=== PATIENT | female | born 1970 ===

== ENCOUNTER 2016-12-08 06:40 | Day surgery (SDC) | payer BC ==
[~2016-12-08] VITALS: Ht 160 cm; Wt 54.4 kg
[2016-12-08] VITALS (8 sets, daily range): BP systolic 100–108; BP diastolic 41–61
[~2016-12-08 06:40] MED LIST: MitoMYcin Opth 0.2 mg/ml Syringe RIGHT EYE ONE
[2016-12-08] MEDS ORDERED: Pred Forte 1% Opth Susp 1ml ONE ×2 (06:43→06:51)
[2016-12-08] MEDS ORDERED: Lidocaine 2% 20mg/ml/Epi 0.005mg/ml 20ml vial ONE (06:43)
[2016-12-08] MEDS ORDERED: Maxitrol Opth Oint 3.5gm ONE (06:43)
[2016-12-08] MEDS ORDERED: Tetracaine 0.5% Opth Soln ONE (06:44)
[2016-12-08] MEDS ORDERED: BSS 15ml BTL ONE (06:44)
[2016-12-08] MEDS ORDERED: Povidone-Iodine 5% opth solution ONE (06:44)
[2016-12-08] MEDS ORDERED: Ciprofloxacin Opth Soln ONE (06:51)
[2016-12-08] MEDS ORDERED: Phenylephrine 2.5% Op Soln ONE (06:52)
[2016-12-08] MEDS ORDERED: Akten 3.5% 1ml Btl ONE (06:52)
[2016-12-08] MEDS: Ciprofloxacin Opth Soln RIGHT EYE SCH ×4 (07:08→07:27)
[2016-12-08] MEDS: Akten 3.5% 1ml Btl RIGHT EYE SCH ×4 (07:08→07:27)
[2016-12-08] MEDS: Phenylephrine 2.5% Op Soln RIGHT EYE SCH ×4 (07:09→07:27)
[2016-12-08] MEDS: Pred Forte 1% Opth Susp 1ml RIGHT EYE SCH ×4 (07:09→07:27)
[2016-12-08] MEDS ORDERED: LR 1000ml ONE (07:30)
[2016-12-08] MEDS ORDERED: Midazolam 2mg/2ml Inj ONE (07:30)
[2016-12-08] MEDS ORDERED: NS Irrig 1000ml ONE (07:30)
[2016-12-08] MEDS ORDERED: Alfentanil 2ml Inj ONE (07:30)
[2016-12-08] MEDS ORDERED: Sterile Water Irrig 1000ml IRRIG ONE (07:30)
[2016-12-08] MEDS ORDERED: LR 1000ml 1,000 ML IVLG SCH (07:42)
--- NOTE | 2016-12-08 07:43 | Pre-Procedure Note/Attestation ---
Pre-Procedure Note/Attestation Complete Prior to Procedure Planned Procedure: right Procedure Narrative: Lamellar keratectomy, amniograft, excision of pterygium, right eye. Indications for Procedure Pre-Operative Diagnosis: Pterygium, right eye Attestation I attest that I discussed the nature of the procedure; its benefits; risks and complications; and alternatives (and the risks and benefits of such alternatives ), prior to the procedure, with the patient (or the patient's legal wholesale representative). I attest that, if there was a reasonable possibility of needing a blood transfusion, the patient (or the patient's legal wholesale representative) was given the [facility] standardized written summary, pursuant to the Michael Raritan Blood Safety Act ([place] Health and Safety Code # 1645, as amended). I attest that I re-evaluated the patient just prior to the surgery and that there has been no change in the patient's H&P, except as documented below: PATRICIA VARGHESE December 08, 2016 07:43
[2016-12-08] MEDS ORDERED: fentaNYL 100 mcg/2 mL IV PRN (07:45)
--- NOTE | 2016-12-08 07:46 | Anethesia Preoperative Eval ---
Anesthesia Pre-op PMH/ROS General Date of Evaluation: December 08, 2016 Time of Evaluation: 07:15 Anesthesiologist: Josephine ASA Score: ASA 1 Mallampati Score Class I : Soft palate, uvula, fauces, pillars visible Class II: Soft palate, uvula, fauces visible Class III: Soft palate, base of uvula visible Class IV: Only hard plate visible Mallampati Classification: Class II Surgeon: Whitney Diagnosis: Pterygium right eye Surgical Procedure: Excision of pterygium Allergies: Coded Allergies: HOMATROPINE (Verified Allergy, Unknown, 12/05/16) HYDROCODONE (Verified Allergy, Unknown, 12/05/16) Medications: see eMAR Past Medical History Cardiovascular: Denies: CAD, HTN, [place], arrhythmia, other, valve dz Pulmonary: Denies: COPD, ARNALDO, asthma, other Gastrointestinal/Genitourinary: Denies: CRI, ESRD, GERD, other Neurologic/Psychiatric: Denies: CVA, TIA, dementia, depression/anxiety, other Endocrine: Denies: DM, hypothyroidism, other, steroids HEENT: Denies: VIEJAS (L), VIEJAS (R), cataract (L), cataract (R), glaucoma, other Hematology/Immune: Denies: DVT, anemia, bleeding disorder, other Musculoskeletal/Integumentary: Denies: DDD, DJD, OA, RA, edema, other PMH Narrative: Denies PSxH Narrative: AP, T&A Anesthesia Pre-op Phys. Exam Physician Exam Last Vital Signs Date Time Temp Pulse Resp B/P Pulse Ox O2 Delivery O2 Flow Rate FiO2 12/08/16 07:24 98.2 67 20 104/58 98 Room Air Constitutional: NAD Neurologic: CN 2-12 intact Cardiovascular: RRR, no M/R/G Respiratory: CTA Gastrointestinal: S/NT/ND Airway Exam Mallampati Score: Class II MO: full ROM: full Teeth: intact Anesthesia Pre-op A/P Labs WNL Urine Test Test 12/08/16 06:50 Urine HCG, Qualitative Negative Risk Assessment & Plan Assessment: Healthy female for excision of pterygium Plan: MAC Status Change Before Surgery: No Pre-Antibiotics Drug: None SHANTHI AVILA M.D. December 08, 2016 07:46
--- NOTE | 2016-12-08 07:47 | Immediate Post-Op Evaluation ---
Immediate Post-Op Evalulation Immediate Post-Op Evalulation Procedure: Excision of pterygium right eye Date of Evaluation: December 08, 2016 Time of Evaluation: 08:30 IV Fluids: 350 Blood Pressure Systolic: 117 Blood Pressure Diastolic: 52 Pulse Rate: 70 Respiratory Rate: 16 O2 Sat by Pulse Oximetry: 98 Temperature (Fahrenheit): 97.2 Pain Score (1-10): 0 Nausea: No Vomiting: No Complications No complication Patient Status: awake, patent, none Hydration Status: adequate Drug: None SHANTHI AVILA M.D. December 08, 2016 07:47
--- NOTE | 2016-12-08 08:43 | Operative Note - PDOC ---
Opthamology Op Report Surgical Report PREPROCEDURE DIAGNOSIS: Pterygium, right eye POSTPROCEDURE DIAGNOSIS: Pterygium, right eye PROCEDURE: 1- Pterygium excision right eye 2- Amniograft from the right eye 3- Lamellar keratectomy SURGEON: Ricco Olson MD ANESTHESIA: MAC, local anesthesia IMPLANT(S): None DRAINS: None SPECIMEN: Pterygium, right eye ESTIMATED BLOOD LOSS: minimal <5cc BLOOD PRODUCTS ADMINISTERED: None COMPLICATIONS: None FINDINGS: pterygium with corneal scar tissue INDICATIONS FOR PROCEDURE: This patient is 56 year old female with pterygium right eye, who presented with blurred vision, foreign body sensation and redness in the affected eye. Risks, benefits and alternatives to pterygium surgery was explained to the patient, who agreed to proceed with the procedure. The informed consent was signed by the patient. DESCRIPTION OF PROCEDURE: The patient was seen by me along with anesthesia team in the pre op area and the surgical site was marked and confirmed. Anesthetic drops was instilled in surgical eye in the pre op. The patient was then brought into the operating room and placed in supine position. Lidocaine 2% with epinephrine was injected under the pterygium on nasal conjunctive. The eye was prepped with Betadine 5% and draped in sterile manner for the ophthalmic surgery. An eyelid speculum was placed to keep the eyelid open. 0.12 forceps and Skyla scissorw were us to dissect the pterygium to the limbus. A 57 blade was used to complete a lamllar keratectomy. The abnormal tissue was sent for pathology evaluation. Hemostasis was performed with cautery. The odalys pawan was used to czech the cornea as part of the lamellar keratectomy. Using marking pen the donor Amniograft was marked. The graft tissue was trimmed to fit the scleral bed. The limbal margin was sutured superiorly and inferiorly. The graft was flipped onto the corneal surface. Both the posterior surface of the graft and the bare sclera were coated with glue. The donor tissue was flipped back into position and smoothed out. Excess tissue was trimmed. The speculum was removed. Prednisolone acetate and TobraDex eye drops and ointment were inserted into the right eye. The eye was covered with an eye shield. The patient was taken to the [facility] in good condition, having tolerated the procedure well. MD HALIMA Belcher JONATHAN December 08, 2016 08:43
--- NOTE | 2016-12-08 08:46 | Brief Operative Note ---
Immediate Post Operative Note Operative Note Pre-op Diagnosis: Pterygium, right eye Procedure: Lamellar Keratectomy, right eye Amniograft, right eye Excision of pterygium, right eye Post-op Diagnosis: Pterygium, right eye Post-op Diagnosis: same as pre-op Surgeon: Patricia Olson MD Threshing Operator: None Additional Surgeons: None Anesthesiologist: Michael Burton MD Anesthesia: MAC Specimen: yes Complications: none Condition: stable Estimated Blood Loss: minimal Drains: none Implant(s) used?: No PATRICIA OLSON December 08, 2016 08:46
--- NOTE | 2016-12-08 09:10 | 48 Hour Post Anesthesia Eval ---
Post Anesthesia Evaluation Procedure: Excision of pterygium right eye Date of Evaluation: December 08, 2016 Time of Evaluation: 09:00 Blood Pressure Systolic: 123 0: 62 Pulse Rate: 68 Respiratory Rate: 15 O2 Sat by Pulse Oximetry: 98 Airway: patent Nausea: No Vomiting: No Pain Intensity: 0 Hydration Status: adequate Cardiopulmonary Status: Stable Mental Status/LOC: patient returned to baseline Follow-up Care/Observations: As per surgery Post-Anesthesia Complications: No anesthetic complication Follow-up care needed: N/A SHANTHI AVILA M.D. December 08, 2016 09:10
[2016-12-08] MEDS ORDERED: LR 1000ml 1,000 ML IV SCH (09:42)
== END 2016-12-08 09:35 | disposition home or self-care (01) ==
LOC: SUR 06:40 → EDBD 07:30 → SUR 09:35
DX: H11.001 Unspecified pterygium of right eye (principal); H17.9 Unspecified corneal scar and opacity; D64.9 Anemia, unspecified; L65.9 Nonscarring hair loss, unspecified; Z88.5 Allergy status to narcotic agent; Z88.8 Allergy status to other drugs, medicaments and biological substances
CPT/HCPCS: 65426; 81025; J2250; J3490; J7120; 94003; 94150

== ENCOUNTER 2020-01-11 13:27 | Emergency (ER) | payer BC, MEDICAID ==
[~2020-01-11] VITALS: Ht 162.6 cm; Wt 56.7 kg
--- NOTE | 2020-01-11 13:40 | NUR ---
ED Nurse Note: Patient walked into ED from home c/o sore throat x 3 days. Patient states she went to urgent care 2 days ago and has been taking a Z-pac, but s/s have not improved. Patient currently has fever of 99.7. No recent travel, no n/v/d. Patient AxO x 4.
[2020-01-11 13:56] VITALS: BP 99/56
--- NOTE | 2020-01-11 14:14 | Emergency Room Report ---
History of Present Illness General Chief Complaint: Sore Throat Source: Patient Present Illness HPI 49-year-old female with no significant past medical history here complaining of 3 days of 10 out of 10 sore throat and tonsillar swelling. Patient reports that she start taking amoxicillin as it was prescribed to her by her doctor 2 days ago however took only 1 day and because she denies any improvement she went to an urgent care and was prescribed azithromycin and she took it for 2 days and began because she did not feel any improvement she is here today requesting a shot of an antibiotic. Patient is afebrile, white patches noted bilaterally. Speaking in full sentences. Rates the pain 10 out of 10. Denies chest pain, shortness of breath, cough and congestion, diarrhea, loss of taste and smell. Denies tobacco smoke, drug use. Patient first asked for Augmentin then asks for an injectable antibiotic however ordered penicillin G IM patient decided to go back to Augmentin. Allergies: Coded Allergies: HOMATROPINE (Verified Allergy, Unknown, 12/05/16) HYDROCODONE (Verified Allergy, Unknown, 12/05/16) COVID-19 Screening Contact w/high risk pt: No Recent Travel to affected area: No Experienced COVID-19 symptoms?: Yes COVID-19 symptoms experienced: Flu-Like Symptoms COVID-19 Testing performed INSIDE TESTER: No Patient History Past Medical History: see triage record Past Surgical History: none Pertinent Family History: none Now: No Immunizations: UTD Reviewed Nursing Documentation: PMH: Agreed; PSxH: Agreed Nursing Documentation-PMH Past Medical History: No Stated History Hx Cardiac Problems: No Hx Cancer: No Hx Gastrointestinal Problems: No Hx Neurological Problems: No Review of Systems All Other Systems: negative except mentioned in HPI Physical Exam Vital Signs Date Time Temp Pulse Resp B/P (MAP) Pulse Ox O2 Delivery O2 Flow Rate FiO2 01/11/20 13:45 99.7 78 16 99/56 (70) 96 Room Air Sp02 EP Interpretation: reviewed, normal General Appearance: no apparent distress, alert, GCS 15, non-toxic Head: normocephalic, atraumatic Eyes: bilateral eye normal inspection, bilateral eye PERRL ENT: tonsillar swelling, pharyngeal erythema, tonsillar exudate Neck: normal inspection Respiratory: chest non-tender, lungs clear, normal breath sounds, speaking full sentences Cardiovascular #1: regular rate, rhythm, no edema Gastrointestinal: non tender, soft Genitourinary: no CVA tenderness Musculoskeletal: back normal Neurologic: alert, oriented Psychiatric: normal inspection Skin: no rash Lymphatic: normal inspection Medical Decision Making PA Attestation All diagnoses and treatment plans were reviewed and discussed with my supervising physician Dr. Dixon Diagnostic Impression: Primary Impression: Strep pharyngitis ER Course 49-year-old female with no significant past medical history here complaining of 3 days of 10 out of 10 sore throat and tonsillar swelling. Patient reports that she start taking amoxicillin as it was prescribed to her by her doctor 2 days ago however took only 1 day and because she denies any improvement she went to an urgent care and was prescribed azithromycin and she took it for 2 days and began because she did not feel any improvement she is here today requesting a shot of an antibiotic. Patient is afebrile, white patches noted bilaterally. Speaking in full sentences. Rates the pain 10 out of 10. Denies chest pain, shortness of breath, cough and congestion, diarrhea, loss of taste and smell. Denies tobacco smoke, drug use. Patient first asked for Augmentin then asks for an injectable antibiotic however ordered penicillin G IM patient decided to go back to Augmentin. Ddx considered but are not limited to: strep pharyngitis, URI, tonsillitis, peritonsillar abscess, influneza Vital signs: are WNL, pt. is afebrile H&PE are most consistent with: Strep pharyngitis ORDERS: Augmentin, prednisone, Motrin, lidocaine viscus ED INTERVENTIONS: Penicillin G IM however patient refused, Augmentin p.o., prednisone, DISCHARGE: At this time pt. is stable for d/c to home. Will provide printed patient care instructions, and any necessary prescriptions. Care plan and follow up instructions have been discussed with the patient prior to discharge. Patient take medication as directed, finish the antibiotic as antibiotics do not work right away. Follow-up primary doctor, if worsening symptoms return to the emergency room Last Vital Signs Date Time Temp Pulse Resp B/P (MAP) Pulse Ox O2 Delivery O2 Flow Rate FiO2 01/11/20 13:56 99.7 78 16 99/56 96 Room Air Disposition: HOME, SELF-CARE Condition: Stable Scripts Amoxicillin/Potassium Clav 875-125* (AUGMENTIN 875-125 TABLET*) 1 Each Tablet 1 TAB ORAL TWICE A DAY for 10 Days, #20 TAB Prov: Garrison Low 01/11/20 Lidocaine HCl 2% Viscous (Lidocaine HCl 2% Viscous) 100 Ml Solution 15 ML ORAL QID, #120 ML Prov: Garrison Low 01/11/20 Ibuprofen* (MOTRIN*) 600 Mg Tablet 600 MG ORAL Q6H PRN for For Pain, #30 TAB 0 Refills Prov: Garrison Low 01/11/20 Prednisone* (PREDNISONE*) 20 Mg Tablet 40 MG ORAL DAILY for 5 Days, #10 TAB Prov: Garrison Low 01/11/20 Referrals: NON PHYSICIAN (PCP) Patient Instructions: Strep Throat Additional Instructions: Take medication as directed, follow-up with your primary doctor, increase oral hydration, you may need to be referred to ear nose throat doctor if the symptoms continue, along with throat culture, if worsening symptoms return to the emergency room Garrison Low Jan 11, 2020 14:14
[2020-01-11] MEDS ORDERED: LIDOCAINE VISC100 ML ORAL (14:15)
[2020-01-11] MEDS ORDERED: IBUPROFEN600 M1 ORAL (14:15)
[2020-01-11] MEDS ORDERED: PREDNISONE20 MG ORAL (14:15)
[2020-01-11] MEDS ORDERED: Ketorolac 30mg Inj IM ONE (14:15)
[2020-01-11] MEDS ORDERED: Bicillin LA 1.2MMU/2ML SYR IM ONE (14:15)
[2020-01-11] MEDS ORDERED: AUGMENTIN 875-1 EAC1 ORAL (14:25)
[2020-01-11] MEDS ORDERED: Augmentin 875mg Tab ORAL ONE (14:30)
--- NOTE | 2020-01-11 14:30 | NUR ---
ED Nurse Note: Patient refused Toradol stating she is allergic to the medication. Toradol wasted in medication room with Brenda NAGY
[2020-01-11 14:37] VITALS: BP 99/56
--- NOTE | 2020-01-11 14:37 | NUR ---
ER DISCHARGE NOTE: Patient is cleared to be discharged per Garrison MERCADO, pt is aox4, on room air, with stable vital signs. pt was given dc and prescription instructions, pt was able to verbalize understanding, pt id bandremoved. pt is able to ambulate with steady gait. pt took all belongings.
== END 2020-01-11 14:37 | disposition home or self-care (01) ==
LOC: EMR 13:45
DX: J02.0 Streptococcal pharyngitis (principal); Z88.6 Allergy status to analgesic agent
CPT/HCPCS: 96372; J0561; J7512; Z7502; 99283